=== PATIENT | male | born 1970 | race African-American/Black ===

== ENCOUNTER 2021-08-29 12:24 | Inpatient (IN) | payer OTHER ==
[2021-08-29] MEDS ORDERED: MAGNESIUM CITRATE 300 ML BOTTLE PO PRN (12:54)
[2021-08-29] MEDS ORDERED: LOPERAMIDE HCL 2 MG CAPSULE PO PRN (12:54)
[2021-08-29] MEDS ORDERED: MAGNESIUM HYDROX 2400MG/30ML ORAL SUSPENSION 30 ML CUP PO PRN (12:54)
[2021-08-29] MEDS ORDERED: P-EPHED 60MG/TRIPROLIDI 2.5MG TABLET PO PRN (12:54)
[2021-08-29] MEDS ORDERED: guaiFENesin 200 MG/10 ML 10 ML UNIT-DOSE CUPS PO PRN (12:54)
[2021-08-29] MEDS ORDERED: MAG HYDROX/AL HYDROX/SIMETH 30 ML UNIT-DOSE CUP PO PRN (12:54)
[2021-08-29] MEDS ORDERED: ACETAMINOPHEN 325 MG TABLET (FP) PO PRN (12:54)
[2021-08-29 13:45] VITALS: BMI 41.9
[2021-08-29] MEDS: PRENATAL VITAMINS W/ FOLIC ACID TABLET (FP) PO SCH (15:23)
[2021-08-29] MEDS: hydrOXYzine PAMOATE 25 MG CAPSULE (FP) PO SCH ×3 (15:23→21:16)
[2021-08-29 15:40] LABS: HEMATOCRIT 39.8 % (35.4-49); HEMOGLOBIN 13.3 GM/dL (11.7-16.9); MCH 31.5 pg (25.7-33.7); MCHC 33.4 g/dl (32.0-35.9); MEAN CELL VOLUME 94.4 fl (80-96); MEAN PLT VOLUME 7.9 fl (7.5-11.1); PLATELET COUNT 224 10^3/uL (134-434); RBC 4.21 M/mm3 (4.00-5.60); RDW 15.1 % (11.9-15.9)
[2021-08-29] MEDS ORDERED: POLYETHYLENE GLYCOL 3350 255 GM BTL PO SCH (15:45)
[2021-08-29 15:46] LABS: ALBUMIN 3.3 g/dl (3.4-5.0); CALCIUM 9.1 mg/dL (8.5-10.1)
[2021-08-29 15:47] LABS: BLOOD UREA NITROGEN 23.5 mg/dL (7-18)
[2021-08-29 15:49] LABS: CREATININE 1.4 mg/dL (0.55-1.3)
[2021-08-29 15:51] LABS: BILIRUBIN,TOTAL 0.5 mg/dL (0.2-1); TOT PROT 7.6 g/dl (6.4-8.2)
[2021-08-29 16:51] LABS: SYPHILIS W/ RPR CONF REACTIVE (NONREACTIVE)
[2021-08-29] MEDS ORDERED: TUBERCULIN PPD 5 TU/0.1ML VIAL ID ONE ×2 (16:59→21:44)
[2021-08-29] MEDS: THIAMINE HCL 100 MG TABLET (FP) PO SCH (21:15)
[2021-08-29] MEDS: MELATONIN 5 MG TABLETS PO SCH (21:16)
[2021-08-29] MEDS: PRAZOSIN HCL 1 MG CAPSULE PO SCH (21:17)
[2021-08-29] MEDS: CARVEDILOL 25 MG TABLET (FP) PO SCH (21:17)
[2021-08-29] MEDS: ATORVASTATIN CA 80 MG TABLET (FP) PO SCH (21:17)
[2021-08-30] MEDS: hydrOXYzine PAMOATE 25 MG CAPSULE (FP) PO SCH ×5 (06:29→21:14)
[2021-08-30] MEDS: NIFEdipine E.R 60 MG TABLET PO SCH (06:29)
[2021-08-30] MEDS ORDERED: ENOXAPARIN NA (PORCINE) 40 MG/0.4 ML DISP.SYRIN SQ SCH (10:00)
[2021-08-30] MEDS: CARVEDILOL 25 MG TABLET (FP) PO SCH ×2 (10:31→21:14)
[2021-08-30] MEDS: PRENATAL VITAMINS W/ FOLIC ACID TABLET (FP) PO SCH (10:31)
[2021-08-30] MEDS: FUROSEMIDE 20 MG TABLET (FP) PO SCH (10:31)
[2021-08-30] MEDS: ASPIRIN COATED 81 MG TABLET.EC PO SCH (10:32)
[2021-08-30] MEDS: PANTOPRAZOLE 40 MG TABLET PO SCH (10:32)
[2021-08-30 14:24] LABS: URINE APPEARANCE CLEAR; URINE BILIRUBIN NEGATIVE (NEGATIVE); URINE COLOR YELLOW; URINE GLUCOSE (UA) NEGATIVE (NEGATIVE); URINE KETONE NEGATIVE (NEGATIVE); URINE LEUK ESTERASE NEGATIVE (NEGATIVE); URINE NITRITE NEGATIVE (NEGATIVE); URINE PROTEIN NEGATIVE (NEGATIVE); URINE UROBILINOGEN 0.2 mg/dL (0.2-1.0)
[2021-08-30] MEDS: THIAMINE HCL 100 MG TABLET (FP) PO SCH (21:13)
[2021-08-30] MEDS: MELATONIN 5 MG TABLETS PO SCH (21:13)
[2021-08-30] MEDS: PRAZOSIN HCL 1 MG CAPSULE PO SCH (21:14)
[2021-08-30] MEDS: ATORVASTATIN CA 80 MG TABLET (FP) PO SCH (21:14)
[2021-08-31] MEDS: hydrOXYzine PAMOATE 25 MG CAPSULE (FP) PO SCH ×5 (06:30→21:10)
[2021-08-31] MEDS: NIFEdipine E.R 60 MG TABLET PO SCH (06:30)
[2021-08-31] MEDS: PANTOPRAZOLE 40 MG TABLET PO SCH (09:10)
[2021-08-31] MEDS: CARVEDILOL 25 MG TABLET (FP) PO SCH ×2 (09:10→21:09)
[2021-08-31] MEDS: ASPIRIN COATED 81 MG TABLET.EC PO SCH (09:10)
[2021-08-31] MEDS: FUROSEMIDE 20 MG TABLET (FP) PO SCH (09:10)
[2021-08-31] MEDS: PRENATAL VITAMINS W/ FOLIC ACID TABLET (FP) PO SCH (09:11)
[2021-08-31] MEDS: THIAMINE HCL 100 MG TABLET (FP) PO SCH (21:09)
[2021-08-31] MEDS: MELATONIN 5 MG TABLETS PO SCH (21:09)
[2021-08-31] MEDS: ATORVASTATIN CA 80 MG TABLET (FP) PO SCH (21:09)
[2021-08-31] MEDS: PRAZOSIN HCL 1 MG CAPSULE PO SCH (21:09)
[2021-09-01] MEDS: hydrOXYzine PAMOATE 25 MG CAPSULE (FP) PO SCH ×3 (06:19→13:18)
[2021-09-01] MEDS: NIFEdipine E.R 60 MG TABLET PO SCH (06:19)
[2021-09-01] MEDS: CARVEDILOL 25 MG TABLET (FP) PO SCH ×2 (09:34→21:11)
[2021-09-01] MEDS: FUROSEMIDE 20 MG TABLET (FP) PO SCH (09:34)
[2021-09-01] MEDS: PRENATAL VITAMINS W/ FOLIC ACID TABLET (FP) PO SCH (09:34)
[2021-09-01] MEDS: PANTOPRAZOLE 40 MG TABLET PO SCH (09:34)
[2021-09-01] MEDS: ASPIRIN COATED 81 MG TABLET.EC PO SCH (09:34)
[2021-09-01] MEDS: ATORVASTATIN CA 80 MG TABLET (FP) PO SCH (21:11)
[2021-09-01] MEDS: THIAMINE HCL 100 MG TABLET (FP) PO SCH (21:11)
[2021-09-01] MEDS: PRAZOSIN HCL 1 MG CAPSULE PO SCH (21:11)
[2021-09-01] MEDS: SUVOREXANT 10 MG TABLET PO PRN (21:14)
[2021-09-02] MEDS: NIFEdipine E.R 60 MG TABLET PO SCH (06:18)
[2021-09-02] MEDS: ASPIRIN COATED 81 MG TABLET.EC PO SCH (10:15)
[2021-09-02] MEDS: ESCITALOPRAM OXALATE 10 MG TABLET PO SCH (10:16)
[2021-09-02] MEDS: CARVEDILOL 25 MG TABLET (FP) PO SCH ×2 (10:16→21:14)
[2021-09-02] MEDS: FUROSEMIDE 20 MG TABLET (FP) PO SCH (10:16)
[2021-09-02] MEDS: PRENATAL VITAMINS W/ FOLIC ACID TABLET (FP) PO SCH (10:17)
[2021-09-02] MEDS: PANTOPRAZOLE 40 MG TABLET PO SCH (10:18)
[2021-09-02] MEDS: METHOCARBAMOL 500 MG TABLET PO PRN ×2 (15:33→21:44)
[2021-09-02] MEDS: PRAZOSIN HCL 1 MG CAPSULE PO SCH (21:14)
[2021-09-02] MEDS: THIAMINE HCL 100 MG TABLET (FP) PO SCH (21:14)
[2021-09-02] MEDS: ATORVASTATIN CA 80 MG TABLET (FP) PO SCH (21:14)
[2021-09-02] MEDS: SUVOREXANT 10 MG TABLET PO PRN (21:15)
[2021-09-03] MEDS: NIFEdipine E.R 60 MG TABLET PO SCH (06:24)
[2021-09-03] MEDS: ASPIRIN COATED 81 MG TABLET.EC PO SCH (09:56)
[2021-09-03] MEDS: PANTOPRAZOLE 40 MG TABLET PO SCH (09:56)
[2021-09-03] MEDS: ESCITALOPRAM OXALATE 10 MG TABLET PO SCH (09:56)
[2021-09-03] MEDS: CARVEDILOL 25 MG TABLET (FP) PO SCH ×2 (09:59→21:19)
[2021-09-03] MEDS: PRENATAL VITAMINS W/ FOLIC ACID TABLET (FP) PO SCH (10:00)
[2021-09-03] MEDS: FUROSEMIDE 20 MG TABLET (FP) PO SCH (10:00)
[2021-09-03] MEDS: ATORVASTATIN CA 80 MG TABLET (FP) PO SCH (21:19)
[2021-09-03] MEDS: PRAZOSIN HCL 1 MG CAPSULE PO SCH (21:19)
[2021-09-03] MEDS: THIAMINE HCL 100 MG TABLET (FP) PO SCH (21:19)
[2021-09-03] MEDS: METHOCARBAMOL 500 MG TABLET PO PRN (21:20)
[2021-09-03] MEDS: SUVOREXANT 10 MG TABLET PO PRN (21:21)
[2021-09-04] MEDS: NIFEdipine E.R 60 MG TABLET PO SCH (06:30)
[2021-09-04] MEDS: ASPIRIN COATED 81 MG TABLET.EC PO SCH (09:21)
[2021-09-04] MEDS: CARVEDILOL 25 MG TABLET (FP) PO SCH ×2 (09:21→21:15)
[2021-09-04] MEDS: FUROSEMIDE 20 MG TABLET (FP) PO SCH (09:21)
[2021-09-04] MEDS: METHOCARBAMOL 500 MG TABLET PO PRN ×2 (09:21→21:15)
[2021-09-04] MEDS: PRENATAL VITAMINS W/ FOLIC ACID TABLET (FP) PO SCH (09:22)
[2021-09-04] MEDS: ESCITALOPRAM OXALATE 10 MG TABLET PO SCH (09:22)
[2021-09-04] MEDS: PANTOPRAZOLE 40 MG TABLET PO SCH (09:22)
[2021-09-04] MEDS: THIAMINE HCL 100 MG TABLET (FP) PO SCH (21:14)
[2021-09-04] MEDS: ATORVASTATIN CA 80 MG TABLET (FP) PO SCH (21:15)
[2021-09-04] MEDS: PRAZOSIN HCL 1 MG CAPSULE PO SCH (21:15)
[2021-09-04] MEDS: SUVOREXANT 10 MG TABLET PO PRN (21:16)
[2021-09-05] MEDS: NIFEdipine E.R 60 MG TABLET PO SCH (06:10)
[2021-09-05] MEDS: METHOCARBAMOL 500 MG TABLET PO PRN ×2 (10:10→21:16)
[2021-09-05] MEDS: PANTOPRAZOLE 40 MG TABLET PO SCH (10:10)
[2021-09-05] MEDS: FUROSEMIDE 20 MG TABLET (FP) PO SCH (10:10)
[2021-09-05] MEDS: ASPIRIN COATED 81 MG TABLET.EC PO SCH (10:10)
[2021-09-05] MEDS: ESCITALOPRAM OXALATE 10 MG TABLET PO SCH (10:10)
[2021-09-05] MEDS: CARVEDILOL 25 MG TABLET (FP) PO SCH ×2 (10:10→21:14)
[2021-09-05] MEDS: PRENATAL VITAMINS W/ FOLIC ACID TABLET (FP) PO SCH (10:11)
[2021-09-05] MEDS: hydrOXYzine PAMOATE 25 MG CAPSULE (FP) PO PRN (10:13)
[2021-09-05] MEDS: THIAMINE HCL 100 MG TABLET (FP) PO SCH (21:14)
[2021-09-05] MEDS: PRAZOSIN HCL 1 MG CAPSULE PO SCH (21:14)
[2021-09-05] MEDS: ATORVASTATIN CA 80 MG TABLET (FP) PO SCH (21:14)
[2021-09-05] MEDS: SUVOREXANT 10 MG TABLET PO PRN (21:16)
[2021-09-06] MEDS: NIFEdipine E.R 60 MG TABLET PO SCH (06:28)
[2021-09-06] MEDS: METHOCARBAMOL 500 MG TABLET PO PRN ×2 (06:50→17:19)
[2021-09-06] MEDS: ASPIRIN COATED 81 MG TABLET.EC PO SCH (09:24)
[2021-09-06] MEDS: FUROSEMIDE 20 MG TABLET (FP) PO SCH (09:24)
[2021-09-06] MEDS: PANTOPRAZOLE 40 MG TABLET PO SCH (09:24)
[2021-09-06] MEDS: CARVEDILOL 25 MG TABLET (FP) PO SCH ×2 (09:24→21:25)
[2021-09-06] MEDS: ESCITALOPRAM OXALATE 10 MG TABLET PO SCH (09:24)
[2021-09-06] MEDS: PRENATAL VITAMINS W/ FOLIC ACID TABLET (FP) PO SCH (09:25)
[2021-09-06] MEDS: hydrOXYzine PAMOATE 25 MG CAPSULE (FP) PO PRN ×2 (09:26→21:28)
[2021-09-06] MEDS: ATORVASTATIN CA 80 MG TABLET (FP) PO SCH (21:24)
[2021-09-06] MEDS: PRAZOSIN HCL 1 MG CAPSULE PO SCH (21:24)
[2021-09-06] MEDS: THIAMINE HCL 100 MG TABLET (FP) PO SCH (21:25)
[2021-09-06] MEDS: SUVOREXANT 10 MG TABLET PO PRN (21:26)
[2021-09-07] MEDS: NIFEdipine E.R 60 MG TABLET PO SCH (06:24)
[2021-09-07] MEDS: ASPIRIN COATED 81 MG TABLET.EC PO SCH (09:04)
[2021-09-07] MEDS: CARVEDILOL 25 MG TABLET (FP) PO SCH ×2 (09:04→21:15)
[2021-09-07] MEDS: FUROSEMIDE 20 MG TABLET (FP) PO SCH (09:05)
[2021-09-07] MEDS: PANTOPRAZOLE 40 MG TABLET PO SCH (09:05)
[2021-09-07] MEDS: ESCITALOPRAM OXALATE 10 MG TABLET PO SCH (09:05)
[2021-09-07] MEDS: PRENATAL VITAMINS W/ FOLIC ACID TABLET (FP) PO SCH (09:05)
[2021-09-07] MEDS: METHOCARBAMOL 500 MG TABLET PO PRN ×2 (09:07→21:14)
[2021-09-07] MEDS: hydrOXYzine PAMOATE 25 MG CAPSULE (FP) PO PRN (09:07)
[2021-09-07] MEDS: PRAZOSIN HCL 1 MG CAPSULE PO SCH (21:14)
[2021-09-07] MEDS: THIAMINE HCL 100 MG TABLET (FP) PO SCH (21:14)
[2021-09-07] MEDS: ATORVASTATIN CA 80 MG TABLET (FP) PO SCH (21:14)
[2021-09-07] MEDS: SUVOREXANT 15 MG TABLET PO PRN (21:16)
[2021-09-07] MEDS ORDERED: SUVOREXANT 10 MG TABLET PO PRN (22:00)
[2021-09-08] MEDS: NIFEdipine E.R 60 MG TABLET PO SCH (06:32)
[2021-09-08] MEDS: PRENATAL VITAMINS W/ FOLIC ACID TABLET (FP) PO SCH (09:49)
[2021-09-08] MEDS: PANTOPRAZOLE 40 MG TABLET PO SCH (09:49)
[2021-09-08] MEDS: ASPIRIN COATED 81 MG TABLET.EC PO SCH (09:49)
[2021-09-08] MEDS: FLUoxetine HCL 10 MG CAPSULE PO SCH (09:50)
[2021-09-08] MEDS: FUROSEMIDE 20 MG TABLET (FP) PO SCH (09:50)
[2021-09-08] MEDS: CARVEDILOL 25 MG TABLET (FP) PO SCH ×2 (09:50→21:16)
[2021-09-08] MEDS: METHOCARBAMOL 500 MG TABLET PO PRN ×2 (09:52→21:15)
[2021-09-08] MEDS: hydrOXYzine PAMOATE 25 MG CAPSULE (FP) PO PRN ×2 (09:52→17:29)
[2021-09-08] MEDS: IBUPROFEN 400 MG TABLET (FP) PO PRN (17:28)
[2021-09-08] MEDS: THIAMINE HCL 100 MG TABLET (FP) PO SCH (21:14)
[2021-09-08] MEDS: ATORVASTATIN CA 80 MG TABLET (FP) PO SCH (21:15)
[2021-09-08] MEDS: SUVOREXANT 15 MG TABLET PO PRN (21:15)
[2021-09-08] MEDS: PRAZOSIN HCL 1 MG CAPSULE PO SCH (21:15)
[2021-09-09] MEDS: NIFEdipine E.R 60 MG TABLET PO SCH (06:27)
[2021-09-09] MEDS: FLUoxetine HCL 10 MG CAPSULE PO SCH (10:10)
[2021-09-09] MEDS: PRENATAL VITAMINS W/ FOLIC ACID TABLET (FP) PO SCH (10:10)
[2021-09-09] MEDS: PANTOPRAZOLE 40 MG TABLET PO SCH (10:10)
[2021-09-09] MEDS: ASPIRIN COATED 81 MG TABLET.EC PO SCH (10:10)
[2021-09-09] MEDS: FUROSEMIDE 20 MG TABLET (FP) PO SCH (10:10)
[2021-09-09] MEDS: IBUPROFEN 400 MG TABLET (FP) PO PRN (10:11)
[2021-09-09] MEDS: hydrOXYzine PAMOATE 25 MG CAPSULE (FP) PO PRN (10:11)
[2021-09-09] MEDS: CARVEDILOL 25 MG TABLET (FP) PO SCH ×2 (10:45→21:16)
[2021-09-09] MEDS: METHOCARBAMOL 500 MG TABLET PO PRN (21:16)
[2021-09-09] MEDS: THIAMINE HCL 100 MG TABLET (FP) PO SCH (21:16)
[2021-09-09] MEDS: ATORVASTATIN CA 80 MG TABLET (FP) PO SCH (21:16)
[2021-09-09] MEDS: PRAZOSIN HCL 1 MG CAPSULE PO SCH (21:16)
[2021-09-09] MEDS ORDERED: SUVOREXANT 15 MG TABLET PO PRN (22:00)
[2021-09-10] MEDS: NIFEdipine E.R 60 MG TABLET PO SCH (06:19)
[2021-09-10] MEDS: FLUoxetine HCL 10 MG CAPSULE PO SCH (10:00)
[2021-09-10] MEDS: PANTOPRAZOLE 40 MG TABLET PO SCH (10:00)
[2021-09-10] MEDS: CARVEDILOL 25 MG TABLET (FP) PO SCH ×2 (10:00→21:06)
[2021-09-10] MEDS: PRENATAL VITAMINS W/ FOLIC ACID TABLET (FP) PO SCH (10:00)
[2021-09-10] MEDS: FUROSEMIDE 20 MG TABLET (FP) PO SCH (10:00)
[2021-09-10] MEDS: METHOCARBAMOL 500 MG TABLET PO PRN ×2 (10:01→21:07)
[2021-09-10] MEDS: hydrOXYzine PAMOATE 25 MG CAPSULE (FP) PO PRN ×2 (10:01→21:07)
[2021-09-10] MEDS: ASPIRIN COATED 81 MG TABLET.EC PO SCH (10:05)
[2021-09-10] MEDS: THIAMINE HCL 100 MG TABLET (FP) PO SCH (21:06)
[2021-09-10] MEDS: PRAZOSIN HCL 1 MG CAPSULE PO SCH (21:06)
[2021-09-10] MEDS: ATORVASTATIN CA 80 MG TABLET (FP) PO SCH (21:06)
[2021-09-11] MEDS: NIFEdipine E.R 60 MG TABLET PO SCH (06:30)
[2021-09-11] MEDS: METHOCARBAMOL 500 MG TABLET PO PRN (07:31)
[2021-09-11] MEDS: hydrOXYzine PAMOATE 25 MG CAPSULE (FP) PO PRN (09:47)
[2021-09-11] MEDS: PANTOPRAZOLE 40 MG TABLET PO SCH (09:47)
[2021-09-11] MEDS: PRENATAL VITAMINS W/ FOLIC ACID TABLET (FP) PO SCH (09:47)
[2021-09-11] MEDS: ASPIRIN COATED 81 MG TABLET.EC PO SCH (09:47)
[2021-09-11] MEDS: FUROSEMIDE 20 MG TABLET (FP) PO SCH (09:48)
[2021-09-11] MEDS: CARVEDILOL 25 MG TABLET (FP) PO SCH (09:48)
[2021-09-11] MEDS: FLUoxetine HCL 10 MG CAPSULE PO SCH (09:48)
[2021-09-11 12:02] VITALS: BP 137/96; PULSE 71; TEMP 97
[2021-09-11] MEDS ORDERED: SUVOREXANT 15 MG TABLET PO PRN (22:00)
[2021-09-11] MEDS ORDERED: SUVOREXANT 20 MG TABLET PO PRN (22:00)
== END 2021-09-12 00:16 | disposition short-term general hospital (02) | DRG 772 ==
LOC: YASAS 12:24 → Y3E 14:05
PROVIDERS: ADMIT Allergy & Immunology; ATTEND Allergy & Immunology
PROC: HZ42ZZZ Group Counseling for Substance Abuse Treatment, Cognitive-Behavioral (ICD-10-PCS; principal; 2021-08-29)
DX: F10.20 Alcohol dependence, uncomplicated (principal); F10.24 Alcohol dependence with alcohol-induced mood disorder; F10.282 Alcohol dependence with alcohol-induced sleep disorder; F20.9 Schizophrenia, unspecified; F31.9 Bipolar disorder, unspecified; F41.9 Anxiety disorder, unspecified; F43.10 Post-traumatic stress disorder, unspecified; I11.0 Hypertensive heart disease with heart failure; I50.30 Unspecified diastolic (congestive) heart failure; N18.9 Chronic kidney disease, unspecified; R07.9 Chest pain, unspecified; H91.92 Unspecified hearing loss, left ear; N40.0 Benign prostatic hyperplasia without lower urinary tract symptoms; E66.01 Morbid (severe) obesity due to excess calories; Z68.41 Body mass index [BMI] 40.0-44.9, adult; Z86.19 Personal history of other infectious and parasitic diseases; Z86.61 Personal history of infections of the central nervous system; Z87.891 Personal history of nicotine dependence; Z59.00 Homelessness unspecified
CPT/HCPCS: 36415; 80053; 81003; 85027; 86593; 86780; 86803; 93005; 93010

== ENCOUNTER 2021-09-11 12:58 | Observation (INO) | payer OTHER ==
[2021-09-11] MEDS ORDERED: ACETAMINOPHEN 325 MG TABLET (FP) PO ONE (13:13)
[2021-09-11] MEDS ORDERED: ACETAMINOPHEN 325 MG TABLET (FP) ONE (13:30)
[2021-09-11 13:32] VITALS: BMI 44.2
[2021-09-11 13:54] LABS: BASO % 0.7 % (0-2.0); EOS % 5.1 % (0-4.5); HEMATOCRIT 39.2 % (35.4-49); HEMOGLOBIN 13.1 GM/dL (11.7-16.9); LYMPH % 27.8 % (8-40); MCH 31.1 pg (25.7-33.7); MCHC 33.4 g/dl (32.0-35.9); MEAN CELL VOLUME 93.1 fl (80-96); MEAN PLT VOLUME 7.4 fl (7.5-11.1); MONO % 11.5 % (3.8-10.2); NEUT % 54.9 % (42.8-82.8); PLATELET COUNT 242 10^3/uL (134-434); RBC 4.21 M/mm3 (4.00-5.60); RDW 14.8 % (11.9-15.9); WHITE BLOOD COUNT 9.5 K/mm3 (4.0-10.0)
[2021-09-11 14:15] LABS: ALBUMIN 3.2 g/dl (3.4-5.0); BLOOD UREA NITROGEN 27.7 mg/dL (7-18); CALCIUM 8.7 mg/dL (8.5-10.1)
[2021-09-11 14:16] LABS: INR 1.03 (0.83-1.09); PROTHROMBIN TIME (PATIENT) 11.9 SEC (9.7-13.0)
[2021-09-11 14:17] LABS: ACTIVATED PTT 32.4 SECONDS (25.2-36.5)
[2021-09-11 14:18] LABS: CREATININE 1.2 mg/dL (0.55-1.3)
[2021-09-11 14:20] LABS: BILIRUBIN,TOTAL 0.2 mg/dL (0.2-1); TOT PROT 6.8 g/dl (6.4-8.2)
[2021-09-11 14:25] LABS: N-TERMINAL BNP 184.6 pg/ml (5-125)
[2021-09-11] MEDS ORDERED: ASPIRIN 325 MG TABLET PO ONE (21:23)
[2021-09-11] MEDS ORDERED: ASPIRIN 325 MG TABLET ONE (21:26)
[2021-09-11] MEDS ORDERED: ENOXAPARIN NA (PORCINE) 40 MG/0.4 ML DISP.SYRIN SQ ONE (22:53)
[2021-09-11] MEDS: ENOXAPARIN NA (PORCINE) 40 MG/0.4 ML DISP.SYRIN SQ SCH (22:57)
[2021-09-12] MEDS: NIFEdipine E.R 60 MG TABLET PO SCH (06:10)
[2021-09-12 07:49] LABS: BASO % 0.8 % (0-2.0); EOS % 4.3 % (0-4.5); HEMATOCRIT 39.7 % (35.4-49); HEMOGLOBIN 13.4 GM/dL (11.7-16.9); LYMPH % 27.7 % (8-40); MCH 31.5 pg (25.7-33.7); MCHC 33.7 g/dl (32.0-35.9); MEAN CELL VOLUME 93.4 fl (80-96); MEAN PLT VOLUME 7.9 fl (7.5-11.1); MONO % 8.8 % (3.8-10.2); NEUT % 58.4 % (42.8-82.8); PLATELET COUNT 255 10^3/uL (134-434); RBC 4.25 M/mm3 (4.00-5.60); RDW 15.1 % (11.9-15.9)
[2021-09-12 08:02] LABS: ALBUMIN 3.2 g/dl (3.4-5.0); MAGNESIUM 2.2 mg/dL (1.8-2.4)
[2021-09-12 08:04] LABS: PHOSPHOROUS 4.5 mg/dL (2.5-4.9)
[2021-09-12 08:05] LABS: CREATININE 1.3 mg/dL (0.55-1.3)
[2021-09-12 08:06] LABS: BILIRUBIN,TOTAL 0.4 mg/dL (0.2-1); TOT PROT 7.1 g/dl (6.4-8.2)
[2021-09-12] MEDS: ASPIRIN COATED 81 MG TABLET.EC PO SCH (09:26)
[2021-09-12] MEDS: FUROSEMIDE 20 MG TABLET (FP) PO SCH (09:26)
[2021-09-12] MEDS: PANTOPRAZOLE 40 MG TABLET PO SCH (09:26)
[2021-09-12] MEDS: ENOXAPARIN NA (PORCINE) 40 MG/0.4 ML DISP.SYRIN SQ SCH ×2 (09:26→21:14)
[2021-09-12] MEDS: CARVEDILOL 25 MG TABLET (FP) PO SCH ×2 (09:26→21:14)
[2021-09-12] MEDS ORDERED: LORazepam 1 MG TABLET PO ONE (18:09)
[2021-09-12] MEDS ORDERED: ATORVASTATIN CA 80 MG TABLET (FP) PO SCH (22:00)
[2021-09-12] MEDS ORDERED: PRAZOSIN HCL 1 MG CAPSULE PO SCH (22:00)
[2021-09-13] MEDS: NIFEdipine E.R 60 MG TABLET PO SCH (06:20)
[2021-09-13] MEDS: PANTOPRAZOLE 40 MG TABLET PO SCH (10:00)
[2021-09-13] MEDS: ASPIRIN COATED 81 MG TABLET.EC PO SCH (10:00)
[2021-09-13] MEDS: CARVEDILOL 25 MG TABLET (FP) PO SCH (10:00)
[2021-09-13] MEDS: ENOXAPARIN NA (PORCINE) 40 MG/0.4 ML DISP.SYRIN SQ SCH (10:01)
[2021-09-13] MEDS: FUROSEMIDE 20 MG TABLET (FP) PO SCH (10:01)
[2021-09-13 12:45] VITALS: BP 122/87; PULSE 70; TEMP 98.6
== END 2021-09-13 13:41 | disposition other institution (70) ==
LOC: JER 12:58 → JERBED 18:21 → J4S 23:05
PROVIDERS: ADMIT Internal Medicine; ATTEND Internal Medicine
PROC: 3E023GC Introduction of Other Therapeutic Substance into Muscle, Percutaneous Approach (ICD-10-PCS; principal; 2021-09-11)
DX: I13.0 Hypertensive heart and chronic kidney disease with heart failure and stage 1 through stage 4 chronic kidney disease, or unspecified chronic kidney disease (principal); N18.9 Chronic kidney disease, unspecified; I50.30 Unspecified diastolic (congestive) heart failure; F10.99 Alcohol use, unspecified with unspecified alcohol-induced disorder; E78.5 Hyperlipidemia, unspecified; K21.9 Gastro-esophageal reflux disease without esophagitis; R07.89 Other chest pain; Z29.8 Encounter for other specified prophylactic measures
CPT/HCPCS: 36415; 71045-TC-FY; 71275-TC; 80053; 83735; 83880; 84100; 84484; 85025; 85379; 85610; 85730; 93005; 93010; 93306-TC; 93971; 93971-TC; 96372; 99285-25; C9803-CS; G0378; Q9967; U0003; U0005

== ENCOUNTER 2021-09-13 15:11 | Inpatient (IN) | payer OTHER ==
[2021-09-13 16:32] VITALS: BMI 44.2
[2021-09-13] MEDS ORDERED: MAGNESIUM CITRATE 300 ML BOTTLE PO PRN (16:37)
[2021-09-13] MEDS ORDERED: NICOTINE 10 MG CARTRIDGE (INHALER) IH PRN (16:37)
[2021-09-13] MEDS ORDERED: LOPERAMIDE HCL 2 MG CAPSULE PO PRN (16:37)
[2021-09-13] MEDS ORDERED: ACETAMINOPHEN 325 MG TABLET (FP) PO PRN (16:37)
[2021-09-13] MEDS ORDERED: BENZOCAINE/MENTHOL (CHLORASEPTIC ) LOZENGE MM PRN (16:37)
[2021-09-13] MEDS ORDERED: MAGNESIUM HYDROX 2400MG/30ML ORAL SUSPENSION 30 ML CUP PO PRN (16:37)
[2021-09-13] MEDS ORDERED: guaiFENesin 200 MG/10 ML 10 ML UNIT-DOSE CUPS PO PRN (16:37)
[2021-09-13] MEDS ORDERED: MAG HYDROX/AL HYDROX/SIMETH 30 ML UNIT-DOSE CUP PO PRN (16:37)
[2021-09-13] MEDS ORDERED: P-EPHED 60MG/TRIPROLIDI 2.5MG TABLET PO PRN (16:37)
[2021-09-13] MEDS ORDERED: IBUPROFEN 400 MG TABLET (FP) PO PRN (16:37)
[2021-09-13] MEDS ORDERED: MELATONIN 5 MG TABLETS PO PRN (16:37)
[2021-09-13] MEDS: hydrOXYzine PAMOATE 25 MG CAPSULE (FP) PO PRN (19:09)
[2021-09-13] MEDS: THIAMINE HCL 100 MG TABLET (FP) PO SCH (21:23)
[2021-09-13] MEDS: ATORVASTATIN CA 80 MG TABLET (FP) PO SCH (21:23)
[2021-09-13] MEDS: CARVEDILOL 25 MG TABLET (FP) PO SCH (21:43)
[2021-09-13] MEDS ORDERED: PRAZOSIN HCL 2 MG CAPSULE PO SCH (22:00)
[2021-09-14] MEDS: NIFEdipine E.R 60 MG TABLET PO SCH (06:12)
[2021-09-14] MEDS: FUROSEMIDE 20 MG TABLET (FP) PO SCH (10:26)
[2021-09-14] MEDS: PRENATAL VITAMINS W/ FOLIC ACID TABLET (FP) PO SCH (10:26)
[2021-09-14] MEDS: ASPIRIN COATED 81 MG TABLET.EC PO SCH (10:26)
[2021-09-14] MEDS: hydrOXYzine PAMOATE 25 MG CAPSULE (FP) PO PRN ×2 (10:28→21:23)
[2021-09-14] MEDS ORDERED: FLUoxetine HCL 10 MG CAPSULE PO SCH (10:30)
[2021-09-14] MEDS: CARVEDILOL 25 MG TABLET (FP) PO SCH ×2 (15:55→21:23)
[2021-09-14] MEDS: THIAMINE HCL 100 MG TABLET (FP) PO SCH (21:21)
[2021-09-14] MEDS: PRAZOSIN HCL 1 MG CAPSULE PO SCH (21:23)
[2021-09-14] MEDS: ATORVASTATIN CA 80 MG TABLET (FP) PO SCH (21:23)
[2021-09-14] MEDS ORDERED: SUVOREXANT 20 MG TABLET PO PRN (22:00)
[2021-09-15] MEDS: NIFEdipine E.R 60 MG TABLET PO SCH (06:17)
[2021-09-15] MEDS: CARVEDILOL 25 MG TABLET (FP) PO SCH ×2 (09:44→21:09)
[2021-09-15] MEDS: ASPIRIN COATED 81 MG TABLET.EC PO SCH (09:44)
[2021-09-15] MEDS: FLUoxetine HCL 20 MG CAPSULE PO SCH (09:44)
[2021-09-15] MEDS: PRENATAL VITAMINS W/ FOLIC ACID TABLET (FP) PO SCH (09:46)
[2021-09-15] MEDS: FUROSEMIDE 20 MG TABLET (FP) PO SCH (10:20)
[2021-09-15] MEDS: hydrOXYzine PAMOATE 25 MG CAPSULE (FP) PO PRN ×2 (12:34→21:09)
[2021-09-15 14:12] LABS: SARS-CoV-2 NAA Not Detected (Not Detected)
[2021-09-15] MEDS: ATORVASTATIN CA 80 MG TABLET (FP) PO SCH (21:09)
[2021-09-15] MEDS: PRAZOSIN HCL 1 MG CAPSULE PO SCH (21:09)
[2021-09-15] MEDS: THIAMINE HCL 100 MG TABLET (FP) PO SCH (21:09)
[2021-09-16] MEDS: NIFEdipine E.R 60 MG TABLET PO SCH (06:42)
[2021-09-16 08:11] VITALS: TEMP 97.4
[2021-09-16 09:04] VITALS: BP 143/98; PULSE 74
[2021-09-16] MEDS: PRENATAL VITAMINS W/ FOLIC ACID TABLET (FP) PO SCH (09:15)
[2021-09-16] MEDS: CARVEDILOL 25 MG TABLET (FP) PO SCH (09:15)
[2021-09-16] MEDS: ASPIRIN COATED 81 MG TABLET.EC PO SCH (09:15)
[2021-09-16] MEDS: FUROSEMIDE 20 MG TABLET (FP) PO SCH (09:16)
[2021-09-16] MEDS: FLUoxetine HCL 20 MG CAPSULE PO SCH (09:17)
== END 2021-09-16 09:30 | disposition home or self-care (01) | DRG 772 ==
LOC: YASAS 15:11 → Y3E 17:15
PROVIDERS: ADMIT Allergy & Immunology; ATTEND Allergy & Immunology
PROC: HZ42ZZZ Group Counseling for Substance Abuse Treatment, Cognitive-Behavioral (ICD-10-PCS; principal; 2021-09-13)
DX: F10.20 Alcohol dependence, uncomplicated (principal); F19.280 Other psychoactive substance dependence with psychoactive substance-induced anxiety disorder; F19.282 Other psychoactive substance dependence with psychoactive substance-induced sleep disorder; F19.24 Other psychoactive substance dependence with psychoactive substance-induced mood disorder; F31.9 Bipolar disorder, unspecified; F41.9 Anxiety disorder, unspecified; F43.10 Post-traumatic stress disorder, unspecified; I11.0 Hypertensive heart disease with heart failure; I50.30 Unspecified diastolic (congestive) heart failure; K21.9 Gastro-esophageal reflux disease without esophagitis; N40.0 Benign prostatic hyperplasia without lower urinary tract symptoms; E78.5 Hyperlipidemia, unspecified; E66.01 Morbid (severe) obesity due to excess calories; Z68.41 Body mass index [BMI] 40.0-44.9, adult; R07.9 Chest pain, unspecified; Z91.013 Allergy to seafood; Z91.018 Allergy to other foods; Z56.0 Unemployment, unspecified; Z59.00 Homelessness unspecified
CPT/HCPCS: C9803-CS; U0003; U0005